=== PATIENT | female | born 1985 | race Caucasian/White ===

== ENCOUNTER 2019-08-23 19:21 | Emergency (ER) | payer SELFPAY ==
--- NOTE | 2019-08-23 19:23 | NUR ---
PT REFUSE TO BE TRAIGE. PT LEFT WITHOUT BEING SEEN.
== END 2019-08-23 19:46 | disposition home or self-care (01) ==
LOC: ER 19:24
DX: Z53.21 Procedure and treatment not carried out due to patient leaving prior to being seen by health care provider (principal)